=== PATIENT | female | born 1960 | race Caucasian/White ===

== ENCOUNTER 2022-05-04 16:28 | Emergency (ER) | payer BC ==
[2022-05-04] MEDS ORDERED: fentaNYL 100 MCG/2 ML SDV IVPUSH ONE (18:21)
[2022-05-04] MEDS ORDERED: Acetaminophen/HYDROcodone 325-5 MG Tab PO ONE (18:58)
[2022-05-04] MEDS ORDERED: Orphenadrine 100 MG Tab.ER PO ONE (19:00)
[2022-05-04] MEDS ORDERED: Diphtheria,Pertussis(Acell),Tetanus Vaccine 0.5 ML Syringe IM ONE (19:24)
== END 2022-05-04 19:36 | disposition home or self-care (01) ==
LOC: JD.ED 16:28
DX: S29.012A Strain of muscle and tendon of back wall of thorax, initial encounter (principal); S20.211A Contusion of right front wall of thorax, initial encounter; Z79.899 Other long term (current) drug therapy; W55.12XA Struck by horse, initial encounter
CPT/HCPCS: 36415; 70450; 71260; 72125; 74177; 80053; 85025; 90471; 90715; 96374; 99284; A9270; J3010